=== PATIENT | male | born 1955 | race Caucasian/White ===

== ENCOUNTER 2017-05-23 07:02 | Observation (INO) | payer OTHER ==
[2017-05-21 09:59] VITALS: BP 154/86
[2017-05-21 10:26] LABS: BASOPHILS # (AUTO) 0.03 x10^3/uL (0-0.1); BASOPHILS % (AUTO) 1 % (0-1); EOSINOPHILS # (AUTO) 0.08 x10^3/uL (0-0.4); EOSINOPHILS % (AUTO) 1 % (1-7); LYMPHOCYTES # (AUTO) 2.08 x10^3/uL (1-3.4); LYMPHOCYTES % (AUTO) 35 % (22-44); MD NO; MEAN CORPUSCULAR HEMOGLOBIN 31.4 pg (27.5-34.5); MEAN CORPUSCULAR HGB CONC 33.5 g/dL (33.2-36.2); MEAN CORPUSCULAR VOLUME 93.9 fL (81-97); MEAN PLATELET VOLUME 8.2 fL (7.4-10.4); MONOCYTES # (AUTO) 0.65 x10^3/uL (0.2-0.8); MONOCYTES % (AUTO) 11 % (2-9); NEUTROPHILS % (AUTO) 52 % (42-75); PLATELET COUNT 246 x10^3/uL (130-400); RED BLOOD COUNT 5.27 x10^6/uL (4.38-5.82); RED CELL DISTRIBUTION WIDTH 13.7 % (9.4-14.8)
[2017-05-21 10:35] LABS: ANION GAP 5 mmol/L (5-15); CALCIUM 8.8 mg/dL (8.5-10.1); CHLORIDE 110 mmol/L (98-107); CREATININE 1.53 mg/dL (0.7-1.3)
[~2017-05-23] VITALS: Ht 188 cm; Wt 113.6 kg
[~2017-05-23 07:02] MED LIST: ASPI-496 PO; ASPI-621 PO; ASPI325T17 PO; ATOR20TA9 PO; CARB200T4 PO; CITA20TA5 PO; CYCL-259 PO; FENO145T13 PO; FENO145T32 PO; FLUO20CA8 PO; HYDR-3245 PO; ISOS30TA8 PO; KRIL1CAP PO; LOSA100T6 PO; LOSA1TAB25 PO; METO25TA91 PO; OXYC5TAB2 PO; PRAS10TA4 PO; TICA90TA PO; TRAM50TA2 PO; TRIA1CAP3 PO
[2017-05-23] MEDS ORDERED: SODIUM CHLORIDE 0.9% 1,000 ML IV ONE (08:18)
[2017-05-23] MEDS ORDERED: ISOS30TA8 PO (08:28)
[2017-05-23] MEDS ORDERED: VERAPAMIL 2.5 MG/ML, 2ML ONE (08:58)
[2017-05-23] MEDS ORDERED: NITROGLYCERIN 5 MG/ML, 10ML ONE (08:58)
[2017-05-23] MEDS ORDERED: HEPARIN 1,000 UNITS/ML, 10ML ONE (08:58)
[2017-05-23] MEDS ORDERED: MIDAZOLAM 1 MG/ML, 5ML ONE (08:58)
[2017-05-23] MEDS ORDERED: TICAGRELOR 90 MG TABLET ONE (08:58)
[2017-05-23] MEDS ORDERED: FENTANYL PF 100 MCG/2ML ONE (08:58)
[2017-05-23] MEDS ORDERED: BIVALIRUDIN 250 MG ONE ×2 (08:58→10:34)
[2017-05-23] MEDS ORDERED: LIDOCAINE-MPF 2% ,5ML ONE (08:59)
[2017-05-23] MEDS ORDERED: LIDOCAINE 2%, 2ML ONE (09:13)
[2017-05-23] MEDS ORDERED: SODIUM CHLORIDE 0.9% 1,000 ML IV SCH (11:26)
[2017-05-23 11:34] VITALS: BP 158/83
[2017-05-23] MEDS ORDERED: NITR0.4T28 SL (11:41)
[2017-05-23] MEDS: METOPROLOL SUCCINATE 25 MG TAB.ER.24H PO SCH (12:00)
[2017-05-23] MEDS: ISOSORBIDE MONONITRATE ER 30 MG TABLET PO SCH (12:00)
[2017-05-23 15:46] VITALS: BP 138/82
[2017-05-23] MEDS ORDERED: LOSARTAN 50MG TABLET PO SCH (18:00)
[2017-05-23] MEDS: ACETAMINOPHEN 325 MG TABLET PO PRN (18:06)
[2017-05-23 20:03] VITALS: BP 161/85
[2017-05-23] MEDS ORDERED: ATORVASTATIN 20 MG TABLET PO SCH (21:00)
[2017-05-24] MEDS: ACETAMINOPHEN 325 MG TABLET PO PRN (02:05)
[2017-05-24 02:08] VITALS: BP 153/84
[2017-05-24 05:36] LABS: ALBUMIN 3.2 g/dL (3.4-5.0); ANION GAP 4 mmol/L (5-15); CALCIUM 8.3 mg/dL (8.5-10.1); CHLORIDE 113 mmol/L (98-107); CREATININE 1.32 mg/dL (0.7-1.3)
[2017-05-24 07:01] VITALS: BP 149/92
[2017-05-24] MEDS ORDERED: FENOFIBRATE 145 MG TABLET PO SCH (09:00)
[2017-05-24] MEDS ORDERED: LOSARTAN POTASSIUM 50 MG PO SCH (09:00)
[2017-05-24] MEDS ORDERED: FLUOXETINE HCL 20 MG CAPSULE PO SCH (09:00)
[2017-05-24] MEDS ORDERED: METOPROLOL SUCCINATE 25 MG TAB.ER.24H PO SCH (09:00)
[2017-05-24] MEDS ORDERED: ISOSORBIDE MONONITRATE ER 30 MG TABLET PO SCH (09:00)
[2017-05-24] MEDS ORDERED: PRASUGREL 10 MG TABLET PO SCH ×2 (09:00)
[2017-05-24] MEDS ORDERED: ASPIRIN 81 MG TABLET EC PO SCH ×2 (09:00)
[2017-05-24] MEDS: METOPROLOL SUCCINATE 25 MG TAB.ER.24H PO SCH (09:08)
[2017-05-24] MEDS: ISOSORBIDE MONONITRATE ER 30 MG TABLET PO SCH (09:10)
[2017-05-24] MEDS ORDERED: NITR0.4T28 SL (09:46)
== END 2017-05-24 11:36 | disposition home or self-care (01) ==
LOC: CACL 07:02 → ORIP 11:26 → 5SO 11:49
PROVIDERS: ADMIT Internal Medicine; ATTEND Internal Medicine Cardiovascular Disease
DX: I25.10 Atherosclerotic heart disease of native coronary artery without angina pectoris (principal); I10 Essential (primary) hypertension; E78.5 Hyperlipidemia, unspecified
CPT/HCPCS: 36415; 80048; 82040; 85014; 85018; 85025; 93458; 93571; 99156; 99157; C1725; C1769; C1874; C1887; C1894; C9600; G0378; J0583; J1644; J2250; J3010; J3490; J7030; Q9967

== ENCOUNTER → 2019-11-17 | Outpatient (CLI) | payer OTHER ==
[~2019-11-17] MED LIST changes: -ASPI-621 PO; +ASPI81TA45 PO; +ATOR20TA37 PO; -ATOR20TA9 PO; -CITA20TA5 PO; +CITA20TA6 PO; -FENO145T13 PO; +FENO145T19 PO; +FLUO20CA23 PO; -FLUO20CA8 PO; -KRIL1CAP PO; +KRIL1CAP7 PO; +LOSA100T14 PO; -LOSA100T6 PO; +NITR0.4T28 SL
== END | disposition home or self-care (01) ==
LOC: CVU 13:12
PROVIDERS: ATTEND Internal Medicine Cardiovascular Disease
DX: I11.9 Hypertensive heart disease without heart failure (principal); I25.119 Atherosclerotic heart disease of native coronary artery with unspecified angina pectoris
CPT/HCPCS: 93306; 93356